=== PATIENT | male | born 2005 | race Two or more races ===

== ENCOUNTER 2024-01-12 01:20 | Emergency (ER) | payer OTHER ==
[~2024-01-12] VITALS: Ht 182.9 cm; Wt 77.6 kg
[2024-01-12] MEDS ORDERED: FAMOTIDINE/PF 20 MG/2 ML VIAL IV PUSH STA (02:15)
[2024-01-12] MEDS ORDERED: EPINEPHRINE HCL/PF 1 MG/ML AMPUL SUBCUTANEO STA (02:15)
[2024-01-12] MEDS ORDERED: DIPHENHYDRAMINE HCL 50 MG/ML VIAL 1ML IV STA (02:15)
[2024-01-12] MEDS ORDERED: METHYLPREDNISOLONE SOD SUCC 125 MG VIAL IV STA (02:15)
[2024-01-12] MEDS ORDERED: PEPCID40 MG PO (04:06)
[2024-01-12] MEDS ORDERED: ALLEGRA ALLERG180 MG PO (04:06)
[2024-01-12] MEDS ORDERED: MEDROL8 MG PO (04:06)
== END 2024-01-12 04:11 ==
LOC: ER 01:21
DX: T78.49XA Other allergy, initial encounter (principal)